=== PATIENT | female | born 1950 | race Caucasian/White ===

== ENCOUNTER 2017-08-02 07:55 | Emergency (ER) | payer MEDICARE ==
[~2017-08-02 07:55] MED LIST: ESTA2TAB PO; ESTR1 PO; IBU600 PO; IBU800 PO; IBUP-56 PO; LISI20TA29 PO; MAGN250T25 PO; MAGN250T26 PO; PER PO; PYRI100T57 PO; PYRI200T9 PO; SIMV-49 PO; [UNRECOGNIZED DRUG - CODE] PO; [UNRECOGNIZED DRUG - OTHER] IL
--- NOTE | 2017-08-02 07:58 | ER Report ---
History and Physical Time Seen By MD: 07:57 HPI/ROS CHIEF COMPLAINT: Flu symptoms HISTORY OF PRESENT ILLNESS: Patient is a 66-year-old female who presents to the emergency department with complaint of approximately one week of flulike symptoms. She states she started with mild Raynaud's and cough on Friday the symptoms have progressed evening which patient began having fevers with chills and body aches worsening cough productive of green sputum and increased work of breathing. She did receive the influenza vaccine this year. She reports chest discomfort with cough but no chest pressure and no abdominal pain. She denies nausea vomiting and diarrhea. General: Fevers, chills, body aches Eyes: No redness, no discharge Ears: No pain, no discharge Nares: No epistaxis, no discharge OP: Postnasal drip Neck: Supple, without adenopathy CV: No chest pain, no palpitations Pulm: Productive cough green sputum Ab: No pain, no nausea, no vomiting, no diarrhea Ext: Body aches Neuro: Headache Skin: No rashes, no lesions Allergies: Coded Allergies: No Known Drug Allergies (Verified , 11/17/14) Home Meds Active Scripts Guaifenesin/Pseudoephedrne Hcl (MUCINEX D ER 1,200-120 MG TAB) 1 Each Tab.er.12h , 1 EACH PO Q12H for cough, #30 TAB 0 Refills Prov:ARIE PIKE MD 08/02/17 Azithromycin (ZITHROMAX) 250 Mg Tablet, 0 PO QDAY, #6 TAB 0 Refills 2 tabs on day one, then 1 tab daily for four more days Prov:ARIE PIKE MD 08/02/17 Reported Medications Citalopram Hydrobromide (CELEXA) 10 Mg Tablet, 20 MG PO QDAY, #10 TAB 08/02/17 Estradiol (ESTRACE) 0.5 Mg Tablet, 0.5 MG PO QDAY 08/02/17 Ibuprofen (IBUPROFEN) 200 Mg Tablet, 3 TAB PO QID Y for PAIN 11/17/14 Magnesium (MAGNESIUM) 250 Mg Tablet, 500 MG PO QDAY 11/17/14 Pyridoxine Hcl (VITAMIN B-6) 200 Mg Tablet.er, 400 MG PO QDAY 11/17/14 Simvastatin (SIMVASTATIN) 20 Mg Tablet, 20 MG PO QDAY, TAB 11/17/14 Lisinopril (LISINOPRIL) 20 Mg Tablet, 20 MG PO QDAY, TAB 11/17/14 Discontinued Reported Medications [Biote Hormone Pellet] No Conflict Check, 1 UNIT [place] Q 3 MONTHS 11/17/14 Past Medical/Surgical History Past medical history significant for history of left-sided trigeminal neuralgia , history of left labrum tear, history of rotator cuff repair in 1996, history of appendectomy history of breast biopsies 3 all benign. History of hypertension and hypercholesterolemia Hx Smoking: No Hx Alcohol Use: Yes Constitutional Vital Sign - Last 24 Hours 08/02/17 08/02/17 08/02/17 08/02/17 07:58 08:00 08:10 08:13 Temp 99.9 Pulse 103 91 Resp 24 B/P (MAP) 142/89 142/89 (106) Pulse Ox 90 93 O2 Delivery Room Air Room Air 08/02/17 08/02/17 08/02/17 08/02/17 08:13 08:20 08:25 08:35 Pulse 93 99 98 Resp 18 18 B/P (MAP) 133/70 (91) Pulse Ox 90 08/02/17 08/02/17 08/02/17 09:00 09:00 09:04 Pulse 105 96 Resp 18 18 Pulse Ox 93 O2 Delivery Room Air Physical Exam General Appearance: The patient is alert, has no immediate need for airway protection and no current signs of toxicity. Eyes: Pupils equal and round no injection. Respiratory: Patient with audible wheeze and prolonged expiratory phase. Cardiac: regular rate and rhythm [ ] Gastrointestinal: Abdomen is soft and non tender, no masses, bowel sounds normal. Musculoskeletal: Neck: Neck is supple and non tender. Extremities have full range of motion and are non tender. Skin: No rashes or lesions. Medical Decision Making Data Points Laboratory Hematology Test 08/02/17 08:00 Influenza Virus Type A (PCR) Negative (NEGATIVE) Influenza Virus Type B (PCR) Negative (NEGATIVE) Chemistry Test 08/02/17 08:00 Influenza Virus Type A (PCR) Negative (NEGATIVE) Influenza Virus Type B (PCR) Negative (NEGATIVE) ED Course/Re-evaluation ED Course 08/02/2017 8:06:11 am After history and physical exam was performed differential diagnosis was formulated which includes but is not limited to influenza, rhinosinusitis, pneumonia, bronchitis plan at this time will be influenza swab followed by chest x-ray and DuoNeb breathing treatment. Patient was offered Tylenol or Motrin which she at this time refused. Re-evaluation 08/02/2017 8:49:14 am patient completed one DuoNeb treatment feeling much improved. Reexamination of the lung shows much improved air movement there still is prolonged expiratory phase with wheezes. We'll repeat DuoNeb will also discharge home with an albuterol inhaler. Decision to Disposition Date: Aug 02, 2017 Decision to Disposition Time: 09:09 Depart Departure Latest Vital Signs Vital Signs Date Time Temp Pulse Resp B/P (MAP) Pulse Ox O2 Delivery O2 Flow Rate FiO2 08/02/17 09:04 96 18 08/02/17 09:00 93 Room Air 08/02/17 08:35 133/70 (91) 08/02/17 07:58 99.9 Impression: Primary Impression: Acute bronchitis due to Mycoplasma pneumoniae Condition: Improved Disposition: HOME OR SELF-CARE Referrals: LEIGHTON HASKINS PA-C (PCP) New Scripts Guaifenesin/Pseudoephedrne Hcl (MUCINEX D ER 1,200-120 MG TAB) 1 Each Tab.er.12h 1 EACH PO Q12H for cough, #30 TAB 0 Refills Prov: ARIE PIKE MD 08/02/17 Azithromycin (ZITHROMAX) 250 Mg Tablet 0 PO QDAY, #6 TAB 0 Refills 2 tabs on day one, then 1 tab daily for four more days Prov: ARIE PIKE MD 08/02/17 Patient Instructions: Acute Bronchitis (GEN) Additional Instructions: Albuterol inhaler: 1-2 puffs every 4-6 hours as needed for cough/shortness of breath Patient will follow-up with primary care provider for repeat x-ray with nipple markers to better identify a possible 1 cm pulmonary nodule in the left lung field. These instructions were handwritten on the patient's discharge instructions prior to her discharge ARIE PIKE MD Aug 02, 2017 07:58
[2017-08-02] MEDS ORDERED: CITA-155 PO (08:08)
[2017-08-02] MEDS ORDERED: ESTR0.5T18 PO (08:08)
[2017-08-02] MEDS ORDERED: ALBUTEROL/IPRATROPIUM 3 ML NEB NEB ONE ×2 (08:10→08:50)
[2017-08-02] MEDS ORDERED: ALBUTEROL SULFATE 90 MCG/ACT 8.5 GM HNH INH ONE (08:50)
[2017-08-02] MEDS ORDERED: AZIT-1 PO (08:52)
[2017-08-02] MEDS ORDERED: GUAI-645 PO (08:52)
[2017-08-02 09:00] VITALS: BP 116/66
--- NOTE | 2017-08-02 09:04 | RADIOLOGY IMAGING REPORT ---
FACILITY: [facility] - [place] PATIENT NAME: rAabella Anderson : 1950 MR: [id number] V: [id number] EXAM DATE: ORDERING PHYSICIAN: ARIE PIKE TECHNOLOGIST: Location: [facility] - [place] Patient: Arabella Anderson : 1950 Visit/Account:[id number] Date of Sevice: 08/02/2017 CHEST PA AND LAT HISTORY: Cough. Shortness of breath. COMPARISON: None. FINDINGS: PA and lateral views of the chest are submitted. Lines/tubes: None. Lungs/pleura: 1 cm pulmonary nodule versus nipple shadow injecting of the left lower chest on the PA view. Otherwise negative. Heart: Negative. Mediastinum: Negative. Bony structures/body wall: Negative. IMPRESSION: 1. 1 cm pulmonary nodule versus nipple shadow projecting over the left lower chest on the PA view. Re peat chest x-ray with nipple markers is recommended. 2. Otherwise no acute cardiopulmonary process. Report Dictated By: Glen Miranda MD at 08/02/2017 8:57 AM Report E-Signed By: Glen Miranda MD at 08/02/2017 9:00 AM WSN:[email or web address]
== END 2017-08-02 09:14 | disposition home or self-care (01) ==
LOC: ER 08:07
DX: J20.0 Acute bronchitis due to Mycoplasma pneumoniae (principal); R91.8 Other nonspecific abnormal finding of lung field
CPT/HCPCS: 71046; 87502; 94640; 99283; J7620

== ENCOUNTER → 2017-09-10 | Outpatient (CLI) | payer MEDICARE ==
[~2017-09-10] MED LIST changes: +AZIT-1 PO; +CITA-155 PO; +ESTR0.5T18 PO; +GUAI-645 PO
--- NOTE | 2017-09-10 12:03 | RADIOLOGY IMAGING REPORT ---
FACILITY: [facility] - [place] PATIENT NAME: Arabella Anderson : 1950 MR: [id number] V: [id number] EXAM DATE: ORDERING PHYSICIAN: LEIGHTON HASKINS TECHNOLOGIST: Location: [facility] - [place], [place] Patient: Arabella Anderson : 1950 Visit/Account:[id number] Date of Sevice: 09/10/2017 Exam type: CHEST PA AND LAT History: Pulmonary nodule, repeat chest with nipple markers Comparison: August 02, 2017. Findings: 1 cm pulmonary nodules again seen projecting over the anterolateral left lung base And is separate from the nipple markers. There is no evidence of focal infiltrates pleural effusions or pulmonary edema. The cardiac silhouette is normal in size. There are mild spondylotic changes o f the thoracic spine. IMPRESSION: 1. 1 cm pulmonary nodule over the anterolateral left lung base is not associated with a nipple shado w. Chest CT with contrast is recommended for further evaluation Report Dictated By: Zulma Rosario MD at 09/10/2017 11:44 AM Report E-Signed By: Zulma Rosario MD at 09/10/2017 11:58 AM WSN:[email or web address]
== END ==
LOC: RAD 11:04
PROVIDERS: ATTEND Physician Assistant
DX: R91.1 Solitary pulmonary nodule (principal); M47.894 Other spondylosis, thoracic region
CPT/HCPCS: 71046

== ENCOUNTER → 2017-09-19 | Outpatient (CLI) | payer MEDICARE ==
[~2017-09-19] MED LIST changes: +IOPAMIDOL 76% 75 ML INFUS BTL 75 ML ONE
--- NOTE | 2017-09-19 13:05 | RADIOLOGY IMAGING REPORT ---
[place] [facility] [place] Arabella [place] : 1950 MR: [id number] V: [id number] EXAM DATE: ORDERING PHYSICIAN: LEIGHTON HASKINS TECHNOLOGIST: Location: [place] [facility] Patient: Arabella Anderson : 1950 Visit/Account:[id number] Date of Sevice: 09/19/2017 CT chest with IV contrast History: Pulmonary nodule by recent chest x-ray COMPARISON STUDIES: Chest x-ray 09/10/2017. TECHNIQUE: Axial CT images were obtained through the chest during the administration of nonionic io dinated IV contrast. Reformatted coronal and sagittal images were also obtained. Contrast used: Isovue 370, 75 ml One of the following dose optimization techniques was utilized in the performance of this exam: Autom ated exposure control; adjustment of the mA and/or kV according to the patient's size; or use of an i terative reconstruction technique. Specific details can be referenced in the facility's radiology C T exam operational policy. FINDINGS: CT Chest- Lower neck: Negative Lungs and pleura: The finding on the chest x-ray correlates to a noncalcified oval nodule in the florence gula measuring 11 x 8 mm, image 214). No other pulmonary nodules are observed. Mediastinum and enma: Normal Heart, aorta, and great vessels: negative Bones: Prominent Schmorl's node in the superior endplate of T10. Chest wall: Negative Chest lymph node assessment: Negative Upper abdomen: There are nonobstructing stones in the left kidney upper pole. IMPRESSION: 1. Left upper lobe, lingula 10 mm average diameter noncalcified pulmonary nodule. Tissue sampling i s recommended. 2. Left nephrolithiasis. Report Dictated By: Arabella Ralph MD at 09/19/2017 12:50 PM Report E-Signed By: Arabella Ralph MD at 09/19/2017 1:01 PM WSN:[email or web address]
== END ==
LOC: CT 02:06
PROVIDERS: ATTEND Physician Assistant
DX: R91.1 Solitary pulmonary nodule (principal); N20.0 Calculus of kidney
CPT/HCPCS: 71260; Q9967

== ENCOUNTER → 2017-10-17 | Outpatient (CLI) | payer MEDICARE ==
[~2017-10-17] MED LIST changes: -IOPAMIDOL 76% 75 ML INFUS BTL 75 ML ONE
--- NOTE | 2017-10-17 11:12 | RADIOLOGY IMAGING REPORT ---
FACILITY: [facility] - [place] PATIENT NAME: Arabella Anderson : 1950 MR: [id number] V: [id number] EXAM DATE: ORDERING PHYSICIAN: LEIGHTON HASKINS TECHNOLOGIST: Location: [facility] - [place] Patient: Araeblla Anderson : 1950 Visit/Account:[id number] Date of Sevice: 10/17/2017 CHEST PA AND LAT Indication: Lung nodule, attempted biopsy days ago. Follow-up for pneumothorax. Comparison: CT chest 10/09/2017 and PET/CT 10/15/2017. Findings: Lungs: Left lower lobe pulmonary nodule, 1.0 cm, is unchanged. The lungs are otherwise clear. There is a tiny left upper lobe pneumothorax, with the pleura measuring 1 cm from the rib margin. Thi s is improved from comparison CT chest 10/10/2007. Mediastinum/pulmonary vasculature: Heart size and pulmonary vasculature are normal. Bones/soft tissues: Normal. IMPRESSION: 1. Small left sided pneumothorax. 2. Stable nodule left lower lobe. This was called by Dr. Arias to LEIGHTON HASKINS on 10/17/2017 10:58 AM Report Dictated By: Gennaro Arias at 10/17/2017 10:58 AM Report E-Signed By: Gennaro Arias at 10/17/2017 11:08 AM WSN:[id number]
== END ==
LOC: RAD 10:32
PROVIDERS: ATTEND Physician Assistant
DX: J95.811 Postprocedural pneumothorax (principal); R91.8 Other nonspecific abnormal finding of lung field
CPT/HCPCS: 71046

== ENCOUNTER → 2017-10-23 | Outpatient (CLI) | payer MEDICARE ==
--- NOTE | 2017-10-23 18:12 | RADIOLOGY IMAGING REPORT ---
FACILITY: [facility] PATIENT NAME: JARET ANTONIO : [id number] MR: [id number] V: [id number] EXAM DATE: ORDERING PHYSICIAN: LEIGHTON HASKINS TECHNOLOGIST: Christina Huang PROCEDURE:BILATERAL DIGITAL SCREENING MAMMOGRAM WITH CAD ASSISTED INTERPRETATION & 3D TOMOSYNTHESIS COMPARISON:Prior mammograms 10/17/16, 10/17/15, 10/12/14, 09/13/13, 09/10/12, 09/09/11. INDICATIONS:SCREENING FINDINGS: Small amount of fibroglandular tissue is seen throughout the breasts. The parenchymal pattern has remained stable allowing for difference in mammographic technique & patient positioning. There is no evidence of malignant appearing mass, malignant appearing calcifications or other secondary sign of malignancy in either breast. DIAGNOSTIC CATEGORY 1--NEGATIVE. RECOMMENDATIONS: ROUTINE MAMMOGRAM AND CLINICAL EVALUATION. IMPRESSION: BIRADS 1: Negative No significant abnormality is seen. Dictated by: Zulma Rosario M.D. on 10/23/2017 at 10:47 Transcribed by: YOMAIRA on 10/23/2017 at 10:54 Approved by: Zulma Rosario M.D. on 10/23/2017 at 18:11 [facility]
== END ==
LOC: MAMO 00:48
PROVIDERS: ATTEND Physician Assistant
DX: Z12.31 Encounter for screening mammogram for malignant neoplasm of breast (principal)
CPT/HCPCS: 77063; 77067

== ENCOUNTER → 2018-06-01 | Outpatient (CLI) | payer MEDICARE ==
--- NOTE | 2018-06-01 13:25 | RADIOLOGY IMAGING REPORT ---
FACILITY: [facility] PATIENT NAME: Arabella Anderson : 1950 MR: [id number] V: [id number] EXAM DATE: ORDERING PHYSICIAN: LEIGHTON HASKINS TECHNOLOGIST: [place] [facility] [place]ella [place] : 1950 Visit/Account:[id number] Date of Sevice: 06/01/2018 CHEST W/O CONTRAST History: Follow-up 11 mm pulmonary nodule left side Pain tightness on inspiration left side TECHNIQUE: Contiguous axial images were performed through the chest to the level of the adrenal gla nds. No IV contrast was administered. Coronal and sagittal reformatting was also performed.Dose Lower ing Technique One of the following dose optimization techniques was utilized in the performance of this exam: Autom ated exposure control; adjustment of the mA and/or kV according to the patient's size; or use of an i terative reconstruction technique. Specific details can be referenced in the facility's radiology C T exam operational policy. COMPARISON STUDIES: September 19, 2017. Lungs / Pleura: The previously noted noncalcified pulmonary nodule in the lingula appears unchanged measuring 11 x 8 mm and is best appreciated on image 228 of series 4. No other pulmonary nodules ar e identified. Mediastinum/nodes: negative. Heart and vessels: Coronary artery calcifications Musculoskeletal / Body wall: Spondylotic changes of the thoracic spine Upper abdomen: Nonobstructing nephrolithiasis of the left kidney IMPRESSION: Previously noted noncalcified pulmonary nodule in the lingula appears unchanged measuring 11 x 8 mm F or nodules this size in a low-risk patient (minimal or absent smoking history, no history of malignan cy), a 3-6 month follow-up CT is recommended, then consider CT at 18-24 months. In a high risk patien t, (smoking or malignancy history), a CT at 3-6 months then at 18-24 months is recommended. Nonobstructing left-sided nephrolithiasis Coronary artery calcifications Report Dictated By: Zulma Rosario MD at 06/01/2018 11:41 AM Report E-Signed By: Zulma Rosario MD at 06/01/2018 1:20 PM WSN:[email or web address]
== END ==
LOC: CT 03:34
PROVIDERS: ATTEND Physician Assistant
DX: R91.1 Solitary pulmonary nodule (principal); N20.0 Calculus of kidney; I25.10 Atherosclerotic heart disease of native coronary artery without angina pectoris
CPT/HCPCS: 71250

== ENCOUNTER → 2019-01-05 | Outpatient (CLI) | payer MEDICARE ==
--- NOTE | 2019-01-06 09:30 | RADIOLOGY IMAGING REPORT ---
FACILITY: [facility] - [place] PATIENT NAME: JARET ANTONIO : [id number] MR: [id number] V: [id number] EXAM DATE: ORDERING PHYSICIAN: LEIGHTON HASKINS TECHNOLOGIST: Christina Huang PROCEDURE: BILATERAL DIGITAL SCREENING MAMMOGRAM WITH CAD ASSISTED INTERPRETATION & 3D TOMOSYNTHESIS. REASON FOR STUDY: Screening. FAMILY HISTORY OF BREAST CANCER: None. BREAST PROCEDURES/TREATMENTS: Benign stereotactic biopsies of both breasts. COMPARISON: 10/23/17, 10/17/16, 10/17/15, 10/12/14, 09/13/13, 09/10/12. VIEWS OBTAINED: Bilateral 2D & 3D full field CC & MLO projections. BREAST DENSITY: There are scattered areas of fibroglandular density throughout the breasts. MAMMOGRAM FINDINGS: The parenchymal pattern has remained stable allowing for difference in mammographic technique & patient positioning. IMPRESSION: BIRADS 1: Negative. DIAGNOSTIC CATEGORY 1--NEGATIVE. RECOMMENDATIONS: ROUTINE MAMMOGRAM AND CLINICAL EVALUATION. Dictated by: Zulma Rosario M.D. on 01/05/2019 at 16:02 Transcribed by: YOMAIRA on 01/06/2019 at 8:28 Approved by: Zulma Rosario M.D. on 01/06/2019 at 9:26 [facility]
== END ==
LOC: MAMO 11-17 13:45
PROVIDERS: ATTEND Physician Assistant
DX: Z12.31 Encounter for screening mammogram for malignant neoplasm of breast (principal)
CPT/HCPCS: 77063; 77067